=== PATIENT | female | born 1950 | race Caucasian/White ===

== ENCOUNTER 2018-10-14 09:44 | Inpatient (IN) | payer OTHER ==
[~2018-10-14] VITALS: Ht 137.2 cm; Wt 63.5 kg
[2018-10-14] MEDS ORDERED: LOSARTAN POTASS50 MG PO (10:48)
[2018-10-14] MEDS ORDERED: METFORMIN HCL500 MG PO (10:49)
[2018-10-14] MEDS ORDERED: ZANTAC300 MG PO (10:49)
[2018-10-14] MEDS ORDERED: ZOCOR40 MG PO (10:49)
[2018-10-14] MEDS ORDERED: VIVLODEX5 MG PO (10:50)
[2018-10-14] MEDS ORDERED: NEURONTIN300 MG PO (10:50)
[2018-10-14] MEDS ORDERED: INDOMETHACIN25 MG PO (10:50)
[2018-10-14] MEDS ORDERED: ULTRAM50 MG PO (10:50)
[2018-10-14] MEDS ORDERED: ATARAX25 MG PO (10:52)
[2018-10-17] MEDS ORDERED: ELIQUIS2.5 MG PO (08:51)
[2018-10-17] MEDS ORDERED: PERCOCET 5-3251 EACH PO (08:51)
[2018-10-17] MEDS ORDERED: DUI500 PO (08:51)
== END 2018-10-17 13:57 | DRG 470 ==
LOC: SURH 09:44 → O/R 13:48 → SURG 19:38
PROVIDERS: ADMIT Orthopaedic Surgery
PROC: 0SRB0J9 Replacement of Left Hip Joint with Synthetic Substitute, Cemented, Open Approach (ICD-10-PCS; principal; 2018-10-14 16:45)
PROC: 30233N1 Transfusion of Nonautologous Red Blood Cells into Peripheral Vein, Percutaneous Approach (ICD-10-PCS; 2018-10-16)
DX: M16.12 Unilateral primary osteoarthritis, left hip (principal); D62 Acute posthemorrhagic anemia; E11.9 Type 2 diabetes mellitus without complications; Z79.4 Long term (current) use of insulin; I10 Essential (primary) hypertension

== ENCOUNTER → 2021-03-30 08:00 | Outpatient (CLI) | payer OTHER ==
[~2021-03-30 08:00] MED LIST: ATARAX25 MG PO; DUI500 PO; ELIQUIS2.5 MG PO; INDOMETHACIN25 MG PO; LOSARTAN POTASS50 MG PO; METFORMIN HCL500 MG PO; NEURONTIN300 MG PO; PERCOCET 5-3251 EACH PO; ULTRAM50 MG PO; VIVLODEX5 MG PO; ZANTAC300 MG PO; ZOCOR40 MG PO
== END | disposition home or self-care (01) ==
LOC: PPH VACUNA 08:00
PROVIDERS: ATTEND Emergency Medicine Pediatric Emergency Medicine
DX: Z23 Encounter for immunization (principal)